=== PATIENT | male | born 1965 | race Caucasian/White ===

== ENCOUNTER 2016-12-20 15:14 | Inpatient (IN) | END 2016-12-21 22:53 | disposition home or self-care (01) | DRG 389 | DX: K56.60 Unspecified intestinal obstruction (principal); K50.90 Crohn's disease, unspecified, without complications; D72.829 Elevated white blood cell count, unspecified ==

== ENCOUNTER 2018-01-25 22:28 | Emergency (ER) | END 2018-01-25 23:51 | disposition home or self-care (01) ==

== ENCOUNTER 2018-03-15 08:54 | Emergency (ER) | END 2018-03-15 10:28 | disposition home or self-care (01) ==